=== PATIENT | female | born 1955 | race Caucasian/White ===

== ENCOUNTER 2018-07-22 17:41 | Emergency (ER) | payer BC ==
[2018-07-22] MEDS ORDERED: HYDROcodone/ACETAMIN 5-325 MG* 1 TAB PO ONE ×2 (18:55→21:52)
[2018-07-22 22:03] VITALS: BP 120/85
--- NOTE | 2018-07-23 00:07 | ED ---
Lower Extremity - HPI Summary HPI Summary: Patient is a 63-year-old female presenting to the ED with right ankle and lower extremity injury after stepping off a [id number] and inverting the ankle. 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 She denies any hip pain on this date. Denies any numbness or tingling or color temperature changes. Small amount of swelling over the ankle with obvious deformity. She has been unable to bear weight. Injury occurred approximately 1 hour JOCKEY VALET. She has not taken any medication JOCKEY VALET and endorses a 7 /10 pain most notably located over the medial and lateral malleolus as well as the mid anterior lower extremity. She denies any other injuries. Patient takes levothyroxine and Effexor, denies other medications or health concerns. - History of Current Complaint Chief Complaint: EDExtremityLower Stated Complaint: RT ANKLE INJURY Time Seen by Provider: 07/22/18 18:11 Hx Obtained From: Patient Mechanism Of Injury: Twisted Onset of Pain: Hours Onset/Duration: Hours Severity Initially: Moderate Severity Currently: Moderate - Review Pain Intensity: 2 Pain Scale Used: Adult Non Verbal Timing: Constant Location: Is Discrete @ - R ankle Character Of Pain: Aching Associated Signs And Symptoms: Positive: Swelling Aggravating Factor(s): Standing, Ambulation Alleviating Factor(s): Rest Able to Bear Weight: No - Risk Factors Gout Risk Factors: Negative DVT Risk Factors: Negative Septic Arthritis Risk Factor: Negative - Allergies/Home Medications Allergies/Adverse Reactions: Allergies Allergy/AdvReac Type Severity Reaction Status Date / Time No Known Allergies Allergy Verified 10/13/15 23:04 PMH/Surg Hx/FS Hx/Imm Hx Previously Healthy: Yes - Immunization History Hx Pertussis Vaccination: No Immunizations Up to Date: Unable to Obtain/Confirm Infectious Disease History: No Infectious Disease History: Denies: Traveled Outside the [place] in Last 30 Days - Social History Occupation: Employed Full-time Lives: With Family Alcohol Use: Weekly Alcohol Amount: 3-4 DRINKS PER WEEK Hx Substance Use: No Substance Use Type: Reports: None Hx Tobacco Use: No Smoking Status (MU): Never Smoked Tobacco Review of Systems Constitutional: Negative Negative: Fever, Chills, Fatigue, Skin Diaphoresis Negative: Palpitations, Chest Pain Negative: Shortness Of Breath, Cough Genitourinary: Negative Positive: no symptoms reported, see HPI Positive: Arthralgia - R medial ankle pain Positive: Bruising Neurological: Negative All Other Systems Reviewed And Are Negative: Yes Physical Exam Triage Information Reviewed: Yes Vital Signs On Initial Exam: Initial Vitals Temp Pulse Resp BP Pulse Ox 98.2 F 86 16 132/77 100 07/22/18 17:45 07/22/18 17:45 07/22/18 17:45 07/22/18 17:45 07/22/18 17:45 Vital Signs Reviewed: Yes Appearance: Positive: Well-Appearing, Well-Nourished Skin: Positive: Warm, Skin Color Reflects Adequate Perfusion Head/Face: Positive: Normal Head/Face Inspection Eyes: Positive: EOMI, KAM, Conjunctiva Clear Neck: Positive: Supple, No Lymphadenopathy Respiratory/Lung Sounds: Positive: Clear to Auscultation, Breath Sounds Present Cardiovascular: Positive: Normal, Pulses are Symmetrical in both Upper and Lower Extremities Musculoskeletal: Positive: Pain @ - R ankle pain - R lower extremity pain just inferior to the R knee Neurological: Positive: Sensory/Motor Intact, Alert, Oriented to Person Place, Time, Speech Normal Psychiatric: Positive: Normal, Affect/Mood Appropriate AVPU Assessment: Alert Diagnostics - Vital Signs Vital Signs Temp Pulse Resp BP Pulse Ox 07/22/18 22:02 98.2 F 88 16 120/85 97 07/22/18 21:26 88 16 137/80 96 07/22/18 20:18 89 16 143/98 07/22/18 19:22 85 16 167/99 97 07/22/18 17:45 98.2 F 86 16 132/77 100 - Laboratory Lab Statement: Any lab studies that have been ordered have been reviewed, and results considered in the medical decision making process. Lower Extremity Course/Dx - Course Course Of Treatment: On physical examination, there is an obvious deformity to the medial ankle with no obvious deformity to the ipsilateral lower extremity. On physical examination, pain with flexion and extension of the right ankle. Denies any knee pain. Good cap refill, pulses +2 bilaterally both posterior tibial and pedal. X-rays obtained which shows a medial malleolus fracture as well as a proximal fibular fracture. Discussed with Dr. Danielle, Ortho who suggested long leg splint and follow up. Slight posterior subluxation, however ankle mortise seems to be fairly intact. Long leg splint using plaster with a sugar tong placed while anteriorly traction the calcaneus anteriorly to better stabilize the ankle. Repeat x-rays obtained which shows a better relocation of the subluxation. - Diagnoses Differential Diagnosis/HQI/PQRI: Positive: Fracture (Closed), Fracture (Open), Sprain, Strain Provider Diagnoses: Medial malleolar fracture, Right fibular fracture Discharge - Sign-Out/Discharge Documenting (check all that apply): Patient Departure - Discharge Plan Condition: Stable Disposition: HOME Prescriptions: oxyCODONE/Acetamin 10/325(NF) [Percocet 10/325 (NF)] 1 tab PO Q6H #12 tab MDD 4 Referrals: Felix Fontaine MD [Medical Doctor] - Esequiel Celeste NP [Primary Care Provider] - Additional Instructions: Please follow-up with orthopedics next week Call Wednesday morning for an appointment Remain completely nonweightbearing Pain medications given, use as instructed You may take ibuprofen every 6 hours intermittently between taking this medication Elevate when possible Crutches for ambulation - Billing Disposition and Condition Condition: STABLE Disposition: Home
--- NOTE | 2018-07-23 08:31 | RAD ---
Indication: RIGHT ankle and lower leg pain post twisting fall. Comparison: No relevant prior exams available on the [facility] [place]. Technique: 183 and 183 hours: AP, lateral, and mortise views RIGHT ankle and AP and lateral views RIGHT lower leg. 2105 hours AP, crosstable lateral, and mortise views RIGHT ankle and AP and lateral views RIGHT lower leg. Report: The initial images document a minimally comminuted and minimally displaced fracture at the medial malleolus with associated slight widening of the ankle mortise medially as well as a coronal oriented fracture through the posterior margin of the tibial plafond and with up to 0.5 cm posterior displacement of the intra-articular fragment with corresponding articular surface discontinuity and up to 1.5 mm incongruity due to cephalad displacement of the fragment. Negative for diastases at the distal tibia fibula syndesmosis. Associated talocrural joint effusion and soft tissue swelling about the ankle. Oblique fracture through the proximal diaphysis and proximal diaphysis of the fibula with one cortex width posterior displacement and mild foreshortening with overlying soft tissue swelling. The post reduction images demonstrate grossly unchanged alignment at the medial malleolus fracture and improvement in magnitude of displacement at the posterior tibial plafond and fracture. Unchanged alignment with approximate one cortex width anterior displacement and mild foreshortening at the proximal fibular fracture. IMPRESSION: #. Medial and posterior malleolus fractures at the distal tibia with resulting slight widening of the ankle mortise medially due to mild displacement of the medial malleolus fracture and articular surface discontinuity and incongruity secondary to displacement of the posterior tibial plafond fracture as described. #. Minimally displaced fracture at the proximal metaphysis diaphysis of the fibula as described. #. Mild improvement in magnitude of displacement at the posterior malleolus/posterior tibial plafond fracture post reduction. R0
--- NOTE | 2018-07-23 08:31 | RAD ---
Indication: RIGHT ankle and lower leg pain post twisting fall. Comparison: No relevant prior exams available on the [facility] [place] [facility] for comparison. Technique: 183 and 183 hours: AP, lateral, and mortise views RIGHT ankle and AP and lateral views RIGHT lower leg. 2105 hours AP, crosstable lateral, and mortise views RIGHT ankle and AP and lateral views RIGHT lower leg. Report: The initial images document a minimally comminuted and minimally displaced fracture at the medial malleolus with associated slight widening of the ankle mortise medially as well as a coronal oriented fracture through the posterior margin of the tibial plafond and with up to 0.5 cm posterior displacement of the intra-articular fragment with corresponding articular surface discontinuity and up to 1.5 mm incongruity due to cephalad displacement of the fragment. Negative for diastases at the distal tibia fibula syndesmosis. Associated talocrural joint effusion and soft tissue swelling about the ankle. Oblique fracture through the proximal diaphysis and proximal diaphysis of the fibula with one cortex width posterior displacement and mild foreshortening with overlying soft tissue swelling. The post reduction images demonstrate grossly unchanged alignment at the medial malleolus fracture and improvement in magnitude of displacement at the posterior tibial plafond and fracture. Unchanged alignment with approximate one cortex width anterior displacement and mild foreshortening at the proximal fibular fracture. IMPRESSION: #. Medial and posterior malleolus fractures at the distal tibia with resulting slight widening of the ankle mortise medially due to mild displacement of the medial malleolus fracture and articular surface discontinuity and incongruity secondary to displacement of the posterior tibial plafond fracture as described. #. Minimally displaced fracture at the proximal metaphysis diaphysis of the fibula as described. #. Mild improvement in magnitude of displacement at the posterior malleolus/posterior tibial plafond fracture post reduction. R0
== END 2018-07-22 22:02 | disposition home or self-care (01) ==
LOC: ED 17:41
DX: S82.51XA Displaced fracture of medial malleolus of right tibia, initial encounter for closed fracture (principal); S82.831A Other fracture of upper and lower end of right fibula, initial encounter for closed fracture; X50.9XXA Other and unspecified overexertion or strenuous movements or postures, initial encounter; Y92.9 Unspecified place or not applicable; Z96.649 Presence of unspecified artificial hip joint
CPT/HCPCS: 99283

== ENCOUNTER → 2018-07-28 10:28 | Day surgery (SDC) | payer BC ==
[~2018-07-28 10:28] MED LIST: Buffered Lidocaine 0.9% SYRIN* 5 ML/SYR SYRINGE INTRADERM ONE; Bupivacaine-MPF SPINAL* 7.5 MG/ML - 2ML AMP ONE; Cisatracurium* 2 MG/ML MDV 5 ML ONE; Dexamethasone IV* 4 MG/ML 1 ML (4 MG) ONE; EPHEDrine (Pressors)* 50 MG/ML VIAL ONE; Famotidine IV* 10 MG/ML 2 ML (20 mg) IV ONE; Famotidine IV* 10 MG/ML 2 ML (20 mg) ONE; HYDROmorphone INJ* 0.5 MG/0.5 ML SYRINGE IV PRN; HYDROmorphone INJ1* 1 MG/ML SYRINGE ONE; KETAMINE HCL* 50 MG/ML 10 ML VIAL ONE; Ketorolac INJ* 30 MG/ML 1 ML VIAL ONE; Lidocaine 2% PF * 5 ML VIAL ONE; Midazolam* 1 MG/ML 10 ML VIAL (10 MG) ONE; Naloxone* 0.4 MG/ML 1 ML VIAL IV PRN; Ondansetron INJ* 2 MG/ML VIAL IV PRN; Ondansetron INJ* 2 MG/ML VIAL ONE; Propofol* 10 MG/ML 20 ML BTL IV PUSH ONE; ROPIVACAINE 5 MG/ML 30 ML BTL (0.5%) ONE; Ropivacaine (OR use only) 2 MG/ML 10 ML ONE; Ropivacaine* 2 MG/ML 20 ML VIAL (0.2%) ONE; ceFAZolin 2 GM PREMIX in ORs 2 GM/50 ML BAG IVPB ONE; fentaNYL* 50 MCG/ML 2 ML VIAL (100 MCG VIAL) ONE; oxyCODONE/Acetamin 5/325 MG* TAB ONE; oxyCODONE/Acetamin 5/325 MG* TAB PO PRN
[2018-07-28] MEDS: fentaNYL* 50 MCG/ML 2 ML VIAL (100 MCG VIAL) IV PRN ×2 (15:23→15:38)
[2018-07-28 17:45] VITALS: BP 145/80
--- NOTE | 2018-07-28 19:33 | OP ---
Operative Report - Blank - Operative Report Date of Operation: 07/28/18 Note: PATIENT: Flaquita Dumont DATE OF : 1955 DATE OF SURGERY: 07/28/2018 SURGEON: Yanick Cullen MD [facility] MANAGER: TAYLER Clement, whos assistance was necessary for positioning, retraction, help with instrumentation, and closure. ANESTHESIOLOGIST: Dr. Gonzalez PREOPERATIVE DIAGNOSIS: Right Maisonneuve Injury POSTOPERATIVE DIAGNOSIS: Right Maisonneuve Injury OPERATION: 1. Right ankle Maisonneuve injury with open reduction and internal fixation of ankle medial and posterior malleoli. 2. Stress views performed by surgeon utilizing fluoroscopy under anesthesia. 3. Right distal tibia-fibula syndesmosis open reduction and internal fixation through a separate incision. 4. Closed treatment of right proximal fibula fracture. ANESTHESIA: GETA IMPLANTS: Arthrex ankle fracture set plate and screws. TOURNIQUET TIME: Less than 2 hours with a well-padded thigh tourniquet at 250mmHg SPECIMENS: none ESTIMATED BLOOD LOSS: minimal COMPLICATIONS: none STATUS: Stable from the operating room to the recovery room and then home. INDICATIONS FOR PROCEDURE: Flaquita sustained a right lower extremity Maisonneuve injury. Both operative and non operative treatment alternatives were reviewed. Further, the nature and risks of surgery were reviewed in careful detail, in the office as well as the pre-operative holding area. Our discussions regarding the risks of surgery included, but were not limited to, infection, wound problems, nerve injury, neuroma, RSD, persistent symptoms, blood clot, nonunion, malunion, post- traumatic arthritis, hardware failure, failure of the surgery, and even the remote chance of catastrophic complication, including loss of limb. DESCRIPTION OF PROCEDURE: The patient was seen in the preoperative holding unit and informed written consent was obtained. The appropriate extremity was marked. The patient was then brought to the operating room and carefully positioned on the operating room table. Anesthesia was induced. All bony prominences were padded with great care. A well-padded thigh tourniquet was placed. A chlorhexidine based pre- scrub was performed followed by a chloraprep prep and drape in standard sterile fashion. A surgical safety pause was then conducted in which we confirmed the appropriate patient, extremity, planned procedure, availability of equipment, indication and administration of prophylactic antibiotics, and DVT prophylaxis in the form of a compression boot on the non-surgical extremity. I began with Esmarch exsanguination of the limb and inflated the tourniquet. I then utilized a posterolaterally based incision at the ankle. I performed a posterolateral approach to the posterior malleolus. I gained reduction of the posterior malleolus with a large pointed reduction clamp. I placed a provisional K wires to hold the reduction. I then contoured a straight plate to sit nicely in the posterior malleolus in buttress fashion. The plate was then secured to the bone with screws. I also placed a 4.0 mm cannulated lag screw posterior to anterior. Fluoroscopy confirmed a good reduction. I made an approximately 4cm incision over the medial malleolus. The fracture was exposed and hematoma was removed. Reduction of the medial malleolar fracture was obtained with a pointed reduction clamp. I placed guidewires for 4.0 mm cannulated screws. I confirmed the position of the guidewires fluoroscopically. I then overdrilled both wires and placed two partially threaded 4.0 mm cannulated screw. I then removed the guidewires and obtained fluoroscopic images. At this point, I performed a stress fluoroscopic examination. I utilized a Cotton test, as well as an external rotation stress test, to evaluate the distal tib-fib syndesmosis. There was syndesmotic instability appreciated fluoroscopically. Therefore, I made a new incision of approximately 2 cm over the distal fibula at the level of the syndesmosis. I manually reduced the syndesmosis and held it provisionally reduced with a large pointed reduction clamp. I utilized one 3.5 mm screw with excellent purchase. Fluoroscopic images , including stress fluoroscopic images, were obtained demonstrating a good reduction of both the fractures and the syndesmosis. The proximal fibula fracture remained well reduced on fluoroscopy, so I made the decision to treat this in a closed manner. At this point, we irrigated copiously and then closed in layers meticulously utilizing 3-0 Monocryl for the deep and subdermal layers and silvia for the skin. A sterile dressing was then applied followed by a splint with the ankle in a neutral position. The patient was then awakened from anesthesia and transferred to the recovery room in stable condition. There were no complications. All needle and sponge counts were correct at the end of the case. ATTESTATION: I attest I was present and scrubbed and performed the critical portions of the procedure myself. POSTOPERATIVE PLAN: The postop plan is for [id number] for an anticipated duration of 8 weeks. From months 2-3, WBAT in the boot. Months 3-4 in regular shoes with an ankle brace. Follow-up will be in 2 weeks. At that time we will likely transition into a [id number] aircast boot.
--- NOTE | 2018-07-29 07:57 | RAD ---
INDICATION: ORIF right ankle COMPARISON: July 22, 2018 FINDINGS: 69.7 seconds of fluoroscopy were provided for the orthopedics department. Fluoroscopic spot imaging of the right ankle were obtained for operative control. CPT II Codes: G9500 (fluoro time doc)
== END | disposition home or self-care (01) ==
LOC: OR 10:28
PROVIDERS: ATTEND Orthopaedic Surgery
DX: S82.861A Displaced Maisonneuve's fracture of right leg, initial encounter for closed fracture (principal); S82.831A Other fracture of upper and lower end of right fibula, initial encounter for closed fracture; W19.XXXA Unspecified fall, initial encounter; Y92.89 Other specified places as the place of occurrence of the external cause; E03.9 Hypothyroidism, unspecified; F41.8 Other specified anxiety disorders
CPT/HCPCS: 76000; A9270-GY; C1713; C1776; J0690; J1100; J1170; J1885; J2250; J2405; J2704; J2795; J3010